=== PATIENT | female | born 1950 | race Caucasian/White ===

== ENCOUNTER 2017-05-23 18:14 | Inpatient (IN) | payer OTHER, BC ==
[~2017-05-23] VITALS: Ht 157.5 cm; Wt 68.0 kg
--- NOTE | ~2017-05-23 | EKG ---
[address] [place] [address] ELECTROCARDIOGRAM REPORT Name: NUNO HAYNES Room #: 457-P ADM IN M.R.#: [id number] Admission: 05/23/17 Attend Phys: Evin Billings Discharge: Date of : 54 Report #: [id number] THIS REPORT FOR: //name// [facility] ED Test Date: 2017-05-23 Test Time: 18:30:41 Pat Name: NUNO HAYNES Department: Room: 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[facility] : 1950 Requested By: Wilfrido Deleon Order Number: [id number] MD: Francisco Javier Villanueva Measurements Intervals [place] Rate: 86 P: 52 KS: 166 QRS: 19 QRSD: 94 T: 22 QT: 391 QTc: 468 Interpretive Statements Sinus rhythm No significant abnormality No previous ECG available for comparison Electronically Signed On 05-24-2017 9:51:14 CDT by Francisco Javier Villanueva [email or web address] <ELECTRONICALLY SIGNED> By: Francisco Javier Villanueva MD, [facility] 05/24/17 0951 1830 1830 Francisco Javier Villanueva MD, FACC /EPI
--- NOTE | ~2017-05-23 | 2DMMODE ---
[facility] [address] [place] [address] 2 D/M-MODE ECHOCARDIOGRAM Name: NUNO HAYNES Room #: 457-P [facility] IN .R.#: [id number] Admission: 05/23/17 Attend Phys: Evin Henderson Discharge: Date of : 54 Date of Service: 05/24/17 0955 Report #: [id number] THIS REPORT FOR: //name// APPROVED REPORT Study performed: 05/24/2017 09:17:15 EXAM: Comprehensive 2D, Doppler, and color-flow Echocardiogram Patient Location: Echo lab Room #: [facility] Status: routine BSA: 1.69 HR: 85 bpm BP: 130/75 mmHg Rhythm: NSR Other Information Study Quality: Good Indications CVA/TIA Echo Enhancing Agent Indication: Rule out Shunt Agent(s) / Amount(s) Used: Agitated Saline 6 cc 2D Dimensions RVDd: 25.69 mm LVEF(%): 51.58 (>50%) IVSd: 10.32 (7-11mm) LVOT Diam: 19.62 (18-24mm) LVDd: 40.17 mm PWd: 9.84 (7-11mm) Ascending Ao: 32.72 (22-36mm) LVDs: 29.73 (25-40mm) Aortic Root: 31.47 mm Landeros's LVEF: 51.58 % Volumes Left Atrial Volume (Systole) Single Plane 4CH: 24.83 mL Single Plane 2CH: 20.04 mL LA ESV Index: 15.00 mL/m2 Aortic Valve AoV Peak Alejandro.: 1.72 m/s AO Peak Gr.: 11.84 mmHg LVOT Max P.93 mmHg LVOT Max V: 1.22 m/s VEENA Vmax: 2.14 cm2 [facility] [place] [place] [address] 2 D/M-MODE ECHOCARDIOGRAM Name: NUNO HAYNES Room #: 457-P [facility] IN M.R.#: [id number] Admission: 05/23/17 Attend Phys: Evin Henderson Discharge: Date of : 54 Date of Service: 05/24/17 0955 Report #: [id number] Mitral Valve E/A Ratio: 0.8 MV Decel. Time: 419.30 ms MV E Max Alejandro.: 0.70 m/s MV A Alejandro.: 0.86 m/s MV PHT: 121.60 ms IVRT: 72.66 ms Pulmonary Valve PV Peak Alejandro.: 1.31 m/s PV Peak Gr.: 6.91 mmHg Pulmonary Vein P Vein S: 0.51 m/s P Vein A: 0.36 m/s P Vein D: 0.29 m/s P Vein A Dur.: 93.4 msec P Vein S/D Ratio: 1.76 Tricuspid Valve TR Peak Alejandro.: 2.52 m/s RAP Estimate: 5.00 mmHg TR Peak Gr.: 25.47 mmHg PA Pressure: 30.00 mmHg Left Ventricle The left ventricle is normal size. There is normal LV segmental wall motion. There is normal left ventricular wall thickness. Left ventricular systolic function is normal. LVEF is 60-65%. Mild diastolic dysfunction is present (impaired relaxation pattern). Right Ventricle The right ventricle is normal size. The right ventricular systolic function is normal. Atria The left atrium size is normal. Injection of bubbles documented no interatrial shunt. The right atrium size is normal. Aortic Valve Aortic valve is mildly calcified. Trace aortic regurgitation. There is no aortic valvular stenosis. Mitral Valve The mitral valve is normal in structure. Trace mitral regurgitation. No evidence of mitral valve stenosis. Tricuspid Valve [facility] [address] [place] [address] 2 D/M-MODE ECHOCARDIOGRAM Name: NUNO HAYNES Room #: 457-P [facility] IN [facility]#: [id number] Admission: 05/23/17 Attend Phys: Evin Henderson Discharge: Date of : 54 Date of Service: 05/24/17 0955 Report #: [id number] The tricuspid valve is normal in structure. Mild tricuspid regurgitation. Estimated PAP is 30mmHg. Pulmonic Valve Pulmonic valve is not well visualized. Great Vessels The aortic root is normal in size. The ascending aorta is normal in size. IVC is normal in size and collapses >50% with inspiration. Pericardium There is no pericardial effusion. <Conclusion> The left ventricle is normal size. Left ventricular systolic function is normal. Mild diastolic dysfunction is present (impaired relaxation pattern). The right ventricle is normal size. The left atrium size is normal. Aortic valve is mildly calcified. There is no aortic valvular stenosis. Trace mitral regurgitation. Mild tricuspid regurgitation. Estimated PAP is 30mmHg. <ELECTRONICALLY SIGNED> By: Alen Morris MD 05/24/1755 4 4 Alen Morris MD /INF
[2017-05-23 18:29] VITALS: BP 141/88
[2017-05-23 18:39] LABS: HEMATOCRIT 42.7 % (37.0-47.0); HEMOGLOBIN 14.6 gm/dL (12.0-15.0); MCH 30.8 pg (26.0-34.0); MCHC 34.2 g/dL (28.0-37.0); MCV 90.3 fL (80.0-100.0); RBC 4.73 mil/uL (4.20-5.00); RDW 12.4 % (10.5-14.5); WBC 8.7 thou/uL (4.0-11.0)
[2017-05-23 18:51] LABS: CALCIUM 8.9 mg/dL (8.5-10.1); CREATININE 0.6 mg/dL (0.6-1.0); POTASSIUM 4.1 mmol/L (3.5-5.1)
[2017-05-23 20:08] LABS: URINE BILIRUBIN NEGATIVE (Negative); URINE BLOOD NEGATIVE (Negative); URINE COLOR YELLOW; URINE GLUCOSE-RANDOM* NEGATIVE (Negative); URINE KETONES NEGATIVE (Negative); URINE LEUKOCYTES-REFLEX NEGATIVE (Negative); URINE PROTEIN (DIPSTICK) NEGATIVE (Negative); URINE UROBILINOGEN 0.2 E.U./dl (0.2-1.0)
[2017-05-23 20:54] VITALS: BP 126/72
[2017-05-23 21:44] VITALS: BP 128/70
[2017-05-23 21:59] VITALS: BP 118/74
[2017-05-23] MEDS ORDERED: CLARITIN10 MG PO (22:24)
[2017-05-23] MEDS ORDERED: BYSTOLIC 5 MG5 M1 PO (22:25)
[2017-05-23] MEDS ORDERED: SEREVENT DISKU50 MCG (22:25)
[2017-05-23] MEDS ORDERED: QVAR8.7 G1 (22:25)
[2017-05-23] MEDS ORDERED: CRESTOR20 MG PO (22:26)
[2017-05-23] MEDS ORDERED: METFORMIN HCL500 MG (22:26)
[2017-05-23] MEDS ORDERED: BUSPIRONE HCL5 MG PO (22:26)
[2017-05-23] MEDS ORDERED: AMBIEN 5 MG TABL5 M1 PO (22:28)
[2017-05-23] MEDS ORDERED: ATROVENT HFA14 GM INH (22:28)
[2017-05-23] MEDS ORDERED: PAZEO2.5 ML OP (22:28)
[2017-05-23] MEDS ORDERED: BAYER CHEWABLE81 MG PO (22:29)
[2017-05-23] MEDS ORDERED: ASMANEX110 MC1 (22:29)
[2017-05-23] MEDS ORDERED: VENTOLIN HFA 1818 GM INH (22:29)
[2017-05-24] VITALS (7 sets, daily range): BP systolic 94–132; BP diastolic 51–75
[2017-05-24 04:09] LABS: ALBUMIN 3.2 g/dL (3.4-5.0); CALCIUM 8.6 mg/dL (8.5-10.1); CREATININE 0.7 mg/dL (0.6-1.0); POTASSIUM 3.3 mmol/L (3.5-5.1); TOTAL BILIRUBIN 0.4 mg/dL (<0.1-1.0); TOTAL PROTEIN 6.5 g/dL (6.4-8.2)
[2017-05-24 04:16] LABS: CHOLESTEROL 217 mg/dL (<200); HDL CHOLESTEROL 39 mg/dL (>40); LDL CHOLESTEROL 152 mg/dL (<100); TC:HDL 5.6 Ratio (Not establshd); TRIGLYCERIDE 133 mg/dL (<150); VLDL 27 mg/dL (<40)
[2017-05-24 04:35] LABS: SERUM ASSESSMENT Clear
[2017-05-25 02:11] LABS: GLYCOHEMOGLOBIN (HGB A1C) 6.5 % (4.8-5.6)
[2017-05-25 06:02] VITALS: BP 100/65
[2017-05-25 07:15] VITALS: BP 138/83
[2017-05-25] MEDS ORDERED: ZETIA10 MG PO (08:43)
[2017-05-25] MEDS ORDERED: LITE COAT ASPI325 MG PO (08:43)
[2017-05-25 08:59] VITALS: BP 138/83
== END 2017-05-25 09:57 | disposition home or self-care (01) | DRG 69 ==
LOC: ER 18:14 → 4W 20:10 → EROBS 20:10 → 4W 21:53
PROVIDERS: Emergency Medicine; Nurse Practitioner Acute Care
DX: G45.9 Transient cerebral ischemic attack, unspecified (principal); J45.909 Unspecified asthma, uncomplicated; E78.5 Hyperlipidemia, unspecified; I10 Essential (primary) hypertension; F32.9 Major depressive disorder, single episode, unspecified; F41.9 Anxiety disorder, unspecified; E11.9 Type 2 diabetes mellitus without complications; G47.00 Insomnia, unspecified; Z80.3 Family history of malignant neoplasm of breast; Z91.041 Radiographic dye allergy status; Z82.49 Family history of ischemic heart disease and other diseases of the circulatory system; Z86.73 Personal history of transient ischemic attack (TIA), and cerebral infarction without residual deficits; Z79.899 Other long term (current) drug therapy; Z79.84 Long term (current) use of oral hypoglycemic drugs; Z79.4 Long term (current) use of insulin; Z79.82 Long term (current) use of aspirin; Z87.440 Personal history of urinary (tract) infections
CPT/HCPCS: 10045